=== PATIENT | female | born 2000 | race Hispanic/Latino ===

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

== ENCOUNTER 2021-02-25 01:28 | Inpatient (IN) | payer OTHER, SELFPAY ==
[2021-02-25 01:57] LABS: #Eosinphils 0.1 thou/uL (0.0-0.7); #Lymphocytes 1.6 thou/uL (1.20-3.40); #Monocytes 0.5 thou/uL (0.11-0.59); #Neutrophils 6.5 thou/uL (1.40-6.50); %Basophils 0.4 % (0.0-1.0); %Eosinophils 0.8 % (0.0-10.0); %Lymphocytes 17.9 % (28.0-48.0); %Monocytes 5.9 % (0.0-4.0); %Neutrophils 74.9 % (31.0-61.0); Hemoglobin 12.7 g/dL (12.0-16.0); Mean Corpuscular HGB CONC 34.2 g/dL (32.0-36.0); Mean Corpuscular Hemoglobin 31.7 pg (25.0-35.0); Mean Corpuscular Volume 92.7 fL (78.0-98.0); Mean Platelet Volume 7.5 fL (7.4-10.4); Platelet Count 283 thou/uL (130-400); RBC Distribution Width 12.5 % (11.5-14.5); White Blood Cell (WBC) Count 8.7 thou/uL (4.8-10.8)
[2021-02-25 02:11] LABS: BHCG - Serum Negative (NEGATIVE); Pregs Control Background? CLEAR/WHITE (CLR/WHITE); Pregs Control Bar Appear? YES (CONTROL BAR)
[2021-02-25 02:18] LABS: Acetaminophen Less than 6.0 mcg/mL (10.0-30.0); Alcohol Less than 10 mg/dL (Less than 10); Salicylate Less than 8.0 mg/dL (15.0-30.0)
[2021-02-25 02:19] LABS: ALT (SGPT) Less than 7 U/L (8-55); AST (SGOT) 10 U/L (5-30); Albumin 3.4 g/dL (3.5-5.0); Alkaline Phosphatase 82 U/L (40-100); Anion Gap 11 mmol/L (10-20); BUN (Urea Nitrogen) 13 mg/dL (8.4-21.0); Bilirubin, Total 0.2 mg/dL (0.2-1.2); CK (CPK) 111 U/L (29-168); Calc. Creatinine Clearance 0 mL/min (70-130); Calcium 8.3 mg/dL (7.8-10.44); Carbon Dioxide 15 mmol/L (22-29); Chloride 118 mmol/L (98-107); Globulin 2.6 g/dL (2.4-3.5); Glucose 109 mg/dL (70-105); Potassium 3.8 mmol/L (3.5-5.1); Sodium 140 mmol/L (136-145)
[2021-02-25 02:29] LABS: Thyroid Stimulating Hormone 0.4694 uIU/mL (0.35-4.94)
[2021-02-25 02:48] LABS: SARS-CoV-2 NAA Rapid Test Not Detected (NotDetected)
[2021-02-25 02:54] LABS: Bilirubin Negative (Negative); Blood, Urine Negative (Negative); Clarity Clear (Clear); Glucose, Urine (Dipstick) Normal (Negative); Ketone, Urine Negative (Negative); Leukocyte Negative Leu/uL (Negative); Nitrite Negative (Negative); Protein, Urine (Dipstick) Negative (Neg-Trace); Urobilinogen Normal mg/dL (Less than 2)
[2021-02-25 03:17] LABS: Amphetamine Not Detected (NotDetected); Barbiturates Screen Not Detected (NotDetected); Benzodiazepine Screen Not Detected (NotDetected); Cocaine Metabolite Screen Not Detected (NotDetected); Methadone Not Detected (NotDetected); Methamphetamine Not Detected (NotDetected); Opiate Screen Not Detected (NotDetected); Oxycodone Screen Not Detected (NotDetected); Phencyclidine (PCP) Not Detected (NotDetected); THC/Cannabinoid Screen Not Detected (NotDetected); Tricyclic Screen Not Detected (NotDetected)
[2021-02-25 04:32] VITALS: BMI 34.1
[2021-02-25] MEDS: Sodium Chloride 0.9% 1,000 ML IV SCH ×4 (04:50→21:26)
[2021-02-25] MEDS ORDERED: Ondansetron PF 4 MG/2 ML Vial SLOW IVP PRN (11:26)
[2021-02-25] MEDS ORDERED: Acetaminophen 325 MG TAB PO PRN (11:27)
[2021-02-25] MEDS: busPIRone HCl 10 MG TAB PO SCH ×2 (15:34→22:00)
[2021-02-25] MEDS ORDERED: EPINEPHrine 4 MG in Dextrose 5% in Water 250 ML IV PRN (17:13)
[2021-02-25] MEDS ORDERED: Lactated Ringer's 1,000 ML IV SCH (17:30)
[2021-02-25] MEDS ORDERED: Calcium Chloride 1 GM/10 ML Abboject SYRINGE IVP SCH (17:45)
[2021-02-25] MEDS ORDERED: Sterile Water 0 ML ONE (18:05)
[2021-02-25] MEDS ORDERED: HUMULIN R 100 UNITS in Sodium Chloride 0.9% 100 ML IVPB SCH (19:15)
[2021-02-25] MEDS ORDERED: Dextrose 5% in Water 1,000 ML IV SCH (19:15)
[2021-02-25] MEDS: Atropine Sulfate 1 mg/1 ml Vial IVP SCH ×2 (20:11→23:19)
[2021-02-25] MEDS: Aripiprazole 10 MG TAB PO SCH (21:59)
[2021-02-25] MEDS: Topiramate 100 MG TAB PO SCH (22:00)
[2021-02-26] MEDS ORDERED: Atropine Sulfate 1 mg/10 ml Syringe ONE (00:41)
[2021-02-26] MEDS ORDERED: Atropine Sulfate 1 mg/1 ml Vial IVP PRN (00:47)
[2021-02-26] MEDS: Sodium Chloride 0.9% 1,000 ML IV SCH ×3 (05:20→21:01)
[2021-02-26] MEDS: Topiramate 100 MG TAB PO SCH ×2 (09:10→21:01)
[2021-02-26] MEDS: busPIRone HCl 10 MG TAB PO SCH ×3 (09:10→21:01)
[2021-02-26] MEDS: Bupropion 150 MG XL TAB PO SCH (09:10)
[2021-02-26] MEDS: Aripiprazole 10 MG TAB PO SCH (21:00)
[2021-02-27 04:06] LABS: #Basophils 0.1 thou/uL (0.0-0.2); #Eosinphils 0.3 thou/uL (0.0-0.7); #Lymphocytes 3.3 thou/uL (1.20-3.40); #Monocytes 0.6 thou/uL (0.11-0.59); #Neutrophils 3.8 thou/uL (1.40-6.50); %Eosinophils 3.8 % (0.0-10.0); %Lymphocytes 40.5 % (28.0-48.0); %Monocytes 7.3 % (0.0-4.0); %Neutrophils 47.5 % (31.0-61.0); Mean Corpuscular HGB CONC 34.5 g/dL (32.0-36.0); Mean Corpuscular Hemoglobin 32.3 pg (25.0-35.0); Mean Corpuscular Volume 93.7 fL (78.0-98.0); Mean Platelet Volume 7.8 fL (7.4-10.4); Platelet Count 257 thou/uL (130-400); RBC Distribution Width 12.7 % (11.5-14.5); Red Blood Cell (RBC) Count 4.03 mill/uL (4.00-5.20)
[2021-02-27 04:14] LABS: Anion Gap 9 mmol/L (10-20); BUN (Urea Nitrogen) 11 mg/dL (8.4-21.0); Calc. Creatinine Clearance 113 mL/min (70-130); Calcium 8.6 mg/dL (7.8-10.44); Carbon Dioxide 18 mmol/L (22-29); Chloride 116 mmol/L (98-107); Glucose 92 mg/dL (70-105); Potassium 3.7 mmol/L (3.5-5.1); Sodium 139 mmol/L (136-145)
[2021-02-27] MEDS: Sodium Chloride 0.9% 1,000 ML IV SCH (05:14)
[2021-02-27] MEDS ORDERED: Cosyntropin 250 MCG VIAL SLOW IVP SCH (07:15)
[2021-02-27] MEDS: Topiramate 100 MG TAB PO SCH ×2 (08:44→20:20)
[2021-02-27] MEDS: busPIRone HCl 10 MG TAB PO SCH ×3 (08:44→20:21)
[2021-02-27] MEDS: Bupropion 150 MG XL TAB PO SCH (08:44)
[2021-02-27] MEDS: Aripiprazole 10 MG TAB PO SCH (20:20)
[2021-02-28] MEDS: Bupropion 150 MG XL TAB PO SCH (08:36)
[2021-02-28] MEDS: busPIRone HCl 10 MG TAB PO SCH (08:37)
[2021-02-28] MEDS: Topiramate 100 MG TAB PO SCH (08:37)
[2021-02-28 12:28] VITALS: BP 102/60; TEMP 98.5
== END 2021-02-28 14:14 | DRG 917 ==
LOC: ERS 01:28 → IMCU/EMU 03:09 → 2NO 02-27 19:23
PROVIDERS: ADMIT Specialist; ATTEND Specialist
DX: T44.7X2A Poisoning by beta-adrenoreceptor antagonists, intentional self-harm, initial encounter (principal); G93.41 Metabolic encephalopathy; Z20.822 Contact with and (suspected) exposure to COVID-19; I95.2 Hypotension due to drugs; M25.561 Pain in right knee; G89.29 Other chronic pain; F31.9 Bipolar disorder, unspecified; F41.1 Generalized anxiety disorder; R00.1 Bradycardia, unspecified; E87.8 Other disorders of electrolyte and fluid balance, not elsewhere classified; Z79.899 Other long term (current) drug therapy
CPT/HCPCS: 36415; 36416; 80048; 80053; 80306; 80307; 80400; 81003; 82533; 82550; 84443; 84703; 85025; 93005; J0461; J0834; J1610; J1815; J2405; J3490; U0002; U0005

== ENCOUNTER 2021-03-17 13:54 | Emergency (ER) | payer OTHER, SELFPAY ==
[2021-03-17 15:48] LABS: #Basophils 0.1 thou/uL (0.0-0.2); #Eosinphils 0.1 thou/uL (0.0-0.7); #Lymphocytes 1.5 thou/uL (1.20-3.40); #Monocytes 0.5 thou/uL (0.11-0.59); #Neutrophils 4.8 thou/uL (1.40-6.50); %Eosinophils 1.3 % (0.0-10.0); %Lymphocytes 21.6 % (28.0-48.0); %Monocytes 7.4 % (0.0-4.0); %Neutrophils 68.7 % (31.0-61.0); Hemoglobin 14.2 g/dL (12.0-16.0); Mean Corpuscular HGB CONC 32.9 g/dL (32.0-36.0); Mean Corpuscular Hemoglobin 30.2 pg (25.0-35.0); Mean Corpuscular Volume 91.8 fL (78.0-98.0); Mean Platelet Volume 7.4 fL (7.4-10.4); Platelet Count 336 thou/uL (130-400); RBC Distribution Width 12.5 % (11.5-14.5); Red Blood Cell (RBC) Count 4.69 mill/uL (4.00-5.20)
[2021-03-17 16:10] LABS: Acetaminophen Less than 6.0 mcg/mL (10.0-30.0); Alcohol Less than 10 mg/dL (Less than 10); Salicylate Less than 8.0 mg/dL (15.0-30.0)
[2021-03-17] MEDS ORDERED: Bacitracin 1 PK ONE (16:10)
[2021-03-17 16:11] LABS: ALT (SGPT) 11 U/L (8-55); AST (SGOT) 24 U/L (5-30); Albumin 4.2 g/dL (3.5-5.0); Alcohol Less than 10 mg/dL (Less than 10); Alkaline Phosphatase 87 U/L (40-100); Anion Gap 13 mmol/L (10-20); BUN (Urea Nitrogen) 13 mg/dL (8.4-21.0); Bilirubin, Total 0.5 mg/dL (0.2-1.2); Calc. Creatinine Clearance 0 mL/min (70-130); Calcium 9.6 mg/dL (7.8-10.44); Carbon Dioxide 22 mmol/L (22-29); Chloride 109 mmol/L (98-107); Globulin 3.2 g/dL (2.4-3.5); Glucose 84 mg/dL (70-105); Potassium 4.1 mmol/L (3.5-5.1); Protein, Total 7.4 g/dL (6.0-8.3); Sodium 140 mmol/L (136-145)
[2021-03-17 17:36] LABS: Pregnancy Test - Urine (BHCG) Negative (Negative); Pregu Control Background? CLEAR/WHITE (CLR/WHITE); Pregu Control Bar Appear? YES (CONTROL BAR); Specific Gravity 1.029 (1.002-1.036)
[2021-03-17 17:38] LABS: Bacteria/HPF None Seen HPF (None Seen); Bilirubin Negative (Negative); Blood, Urine Negative (Negative); Clarity Turbid (Clear); Glucose, Urine (Dipstick) Normal (Negative); Ketone, Urine Negative (Negative); Leukocyte 75 Leu/uL (Negative); Nitrite Negative (Negative); Protein, Urine (Dipstick) 20 mg/dL (Neg-Trace); RBC/HPF None Seen HPF (0-3); Specific Gravity, Urine 1.029 (1.002-1.036); Urobilinogen Normal mg/dL (Less than 2); pH, Urine 5.5 (5.0-9.0)
[2021-03-17 22:35] LABS: SARS-CoV-2 NAA Rapid Test Not Detected (NotDetected)
== END 2021-03-18 09:02 ==
LOC: ERS 13:54
DX: S61.212A Laceration without foreign body of right middle finger without damage to nail, initial encounter (principal); Z20.822 Contact with and (suspected) exposure to COVID-19; W45.8XXA Other foreign body or object entering through skin, initial encounter
CPT/HCPCS: 12001; 36415; 80053; 80307; 81003; 81015; 81025; 84443; 85025; 93005; U0002